=== PATIENT | female | born 1980 | race Two or more races ===

== ENCOUNTER 2019-05-10 10:30 | Emergency (ER) | payer SELFPAY ==
[~2019-05-10] VITALS: Ht 165.1 cm; Wt 86.2 kg
[2019-05-10 10:37] VITALS: BP 130/87
--- NOTE | 2019-05-10 10:37 | NUR ---
PT BIB SELF C/O LEFT CALF PAIN STARTED THIS MORNING AROUND 4AM, COMING [place], PT IS AAOX4, NOT IN RESPIRATORY DISTRESS, HOOKED TO MONITOR, KEPT RESTED AND COMFORTABLE, WILL CONTINUE TO MONITOR, WILL CONTINUE TO MONITOR.
--- NOTE | 2019-05-10 10:53 | NUR ---
TECH AT BEDSIDE FOR US OF LEFT LEG.
[2019-05-10] MEDS ORDERED: IBUPROFEN 400 MG TABLET PO ONE (11:30)
[2019-05-10] MEDS ORDERED: IBUPROFEN 400 MG TABLET ONE (11:32)
--- NOTE | 2019-05-10 12:19 | NUR ---
Patient discharged to home in stable condition. Written and verbal after care instructions given. Patient verbalizes understanding of instruction.
== END 2019-05-10 12:20 | disposition home or self-care (01) ==
LOC: ER 10:33
DX: M62.831 Muscle spasm of calf (principal); Z88.5 Allergy status to narcotic agent
CPT/HCPCS: 93971-TC